=== PATIENT | female | born 1970 | race Caucasian/White ===

== ENCOUNTER 2018-08-11 14:53 | Emergency (ER) | payer MEDICAID ==
[~2018-08-11] VITALS: Ht 165.1 cm; Wt 78.5 kg
[2018-08-11 15:03] VITALS: Ht 165.1 cm; Wt 78.5 kg
[2018-08-11 16:04] LABS: BASOPHIL % 0.3 % (0-2); PLATELET COUNT 236 x10^3mcL (130-400)
[2018-08-11 16:06] LABS: RED CELL DISTRIBUTION WIDTH 15.2 % (11.5-14.5)
[2018-08-11 16:08] LABS: CALCIUM 10.3 mg/dL (8.5-10.1); CARBON DIOXIDE 25.9 mmol/L (21-32); CHLORIDE SERUM 102 mmol/L (98-107); CREATININE SERUM 0.8 mg/dL (0.6-1.0); GFR1 > 60 mL/min; GLUCOSE SERUM 136 mg/dL (74-106); POTASSIUM SERUM 3.7 mmol/L (3.5-5.1); SODIUM SERUM 137 mmol/L (136-145)
[2018-08-11 16:13] LABS: ALBUMIN 3.8 g/dL (3.4-5.0); ALKALINE PHOSPHATASE 85 U/L (46-116); ALT/SGPT 24 U/L (14-59); AST/SGOT 15 U/L (15-37); BILIRUBIN TOTAL 0.2 mg/dL (0.20-1.00); LIPASE 75 IU/L (73-393); TOTAL PROTEIN, SERUM 7.3 g/dL (6.4-8.2)
[2018-08-11 16:14] LABS: microscopic required? YES; urine erythrocyte TRACE (NEGATIVE)
[2018-08-11 18:31] VITALS: BP 123/77
== END 2018-08-11 18:37 | disposition home or self-care (01) ==
LOC: ED 14:53
PROVIDERS: Specialist
DX: N13.2 Hydronephrosis with renal and ureteral calculous obstruction (principal)
CPT/HCPCS: 36415; J1885